=== PATIENT | female | born 1955 | race Caucasian/White ===

== ENCOUNTER 2017-04-22 12:38 | Outpatient (CLI) | payer OTHER ==
--- NOTE | 2017-04-22 16:47 | MMO ---
BILATERAL SCREENING MAMMOGRAMS: DATE: 04/22/17 Baseline interpretation. No prior comparisons available. This patient's mammogram was interpreted with the assistance of computer-aided detection. FINDINGS: There are scattered fibroglandular elements bilaterally. There is an asymmetric density involving th e anterior inner right breast, likely localizing to the central aspect of the right breast middle de pth on MLO exam. There is a focal asymmetry within the upper outer left breast. IMPRESSION: BIRADS 0: Incomplete: Need Additional Imaging Evaluation and/or Prior Mammograms for Comparison Recommend follow-up diagnostic bilateral mammogram and, if necessary, ultrasound exam, to evaluate a reas of asymmetric density/focal asymmetry of the breasts bilaterally. The facility will notify the patient of the need for additional imaging services. POS: [facility]
== END 2017-04-22 12:39 | disposition home or self-care (01) ==
LOC: MAMMO 12:38
PROVIDERS: ATTEND Family Medicine
DX: Z12.31 Encounter for screening mammogram for malignant neoplasm of breast (principal)
CPT/HCPCS: 77067; G0202

== ENCOUNTER 2017-06-03 12:38 | Outpatient (CLI) | payer OTHER ==
--- NOTE | 2017-06-03 14:44 | ULT ---
FOCUSED ULTRASOUND OF THE RIGHT BREAST: Date: 06/03/17 COMPARISON: None. HISTORY: 61-year-old female with a focal asymmetry within the right breast at the 3 o'clock position. FINDINGS: Focused ultrasound of the right breast at the 2-3 o'clock position is obtained. No mass or abnormal s hadowing is seen. IMPRESSION: Unremarkable focused ultrasound of the right breast. Please see diagnostic mammography report for BIR ADS classification and follow-up recommendations. POS: [facility]
--- NOTE | 2017-06-03 14:46 | ULT ---
FOCUSED ULTRASOUND OF LEFT BREAST: Date: 06/03/17 COMPARISON: None. HISTORY: Focal asymmetry 12 o'clock position of left breast seen on mammography. FINDINGS: Focused ultrasound of the 12 o'clock position of the left breast is obtained. Approximately 4.0 cm from the nipple, at the 12 o'clock position of the left breast, there is a lobul ated area of multifocal decreased echogenicity with increased through-transmission. This suggests a c luster of cysts and/or complex cysts versus mildly dilated ducts. No solid mass or abnormal shadowing . IMPRESSION: BIRADS 3: Probably Benign Finding - Short-Interval Follow-Up Suggested Recommend follow-up diagnostic mammogram and focused breast ultrasound in 6 months. The facility will notify the patient of the need for additional imaging services. POS: [facility]
--- NOTE | 2017-06-03 14:59 | MMO ---
BILATERAL SCREENING MAMMOGRAM: Date: 06/03/17 COMPARISON: Screening mammography dated 04/22/17. HISTORY: Evaluate asymmetric densities within both breasts. FINDINGS: This patient's mammogram was interpreted with the assistance of computer-aided detection. Scattered fibroglandular densities are noted. There is a vague asymmetric density in the medial aspect of the right breast at the 2-3 o'clock posit ion, as seen on prior imaging. In addition, there is a vague asymmetric density in the left breast at the 12 o'clock position. These findings may simply represent areas of asymmetric breast tissue. When evaluated with ultrasound , the right breast is unremarkable. Imaging of the left breast on ultrasound incidentally notes hypoe choic somewhat elongated lobulated structures, likely representing a combination of cysts and mildly dilated ducts. Focused ultrasound of both breasts demonstrates no solid mass or abnormal shadowing. IMPRESSION: BIRADS 3: Probably Benign Finding - Short-Interval Follow-Up Suggested Recommend follow-up diagnostic mammogram bilaterally in 6 months, as well as focused left breast ultr asound in 6 months. The facility will notify the patient of the need for additional imaging services. POS: [facility]
== END 2017-06-03 12:39 | disposition home or self-care (01) ==
LOC: MAMMO 12:38
PROVIDERS: ATTEND Family Medicine
DX: N64.89 Other specified disorders of breast (principal)
CPT/HCPCS: 77066; G0204

== ENCOUNTER 2017-12-07 08:01 | Outpatient (CLI) | payer OTHER | END 2017-12-07 08:02 | disposition home or self-care (01) | LOC: BICMAMMO 08:01 | PROVIDERS: ATTEND Family Medicine | DX: N60.02 Solitary cyst of left breast (principal) | CPT/HCPCS: G0279 ==